=== PATIENT | female | born 1995 | race Caucasian/White ===

== ENCOUNTER 2021-07-03 17:48 | Emergency (ER) | payer OTHER ==
[~2021-07-03] VITALS: Ht 162.6 cm; Wt 76.2 kg
[~2021-07-03 17:48] MED LIST: CILOXAN5 ML OS; DAILY MULTIPLE1 EACH PO; DEPO-PROVE150 MG/1 M IM; NORCO 5-325 TA1 EACH PO; VICODIN 5-3001 EACH PO
[2021-07-03] MEDS ORDERED: VALACYCLOVIR500 MG PO (18:05)
== END 2021-07-03 19:32 | disposition home or self-care (01) ==
LOC: ED 17:48
DX: S43.401A Unspecified sprain of right shoulder joint, initial encounter (principal); F17.200 Nicotine dependence, unspecified, uncomplicated; Z88.8 Allergy status to other drugs, medicaments and biological substances; Z79.899 Other long term (current) drug therapy; W18.30XA Fall on same level, unspecified, initial encounter; Y99.0 Civilian activity done for income or pay
CPT/HCPCS: 73060; 96374; 99283-25; J1170